=== PATIENT | female | born 1940 | race Caucasian/White ===

== ENCOUNTER 2021-10-01 01:57 | Inpatient (IN) | payer MEDICARE, MEDICAID ==
[~2021-10-01] VITALS: Ht 162.6 cm; Wt 65.3 kg
[2021-10-01 04:05] LABS: CHLORIDE 109 mEq/L (98-107)
[2021-10-01 04:12] LABS: BASOPHILS % 0.3 % (0.0-2.0); EOSINOPHILS % 0.8 % (0.0-5.0); HEMATOCRIT. 41.8 % (36.0-48.0); HEMOGLOBIN. 13.7 g/dL (12.0-16.0); LYMPHOCYTES % 18.2 % (20.0-50.0); MEAN CORPUSCULAR VOLUME 94.6 fL (81.0-99.0); MEAN PLATELET VOLUME 7.8 fl (7.4-10.4); MONOCYTES % 5.9 % (2.0-8.0); NEUTROPHILS % 74.8 % (40.0-76.0); PLATELET 272 x1000/uL (130-400); RED BLOOD CELL COUNT 4.42 mill/uL (4.2-5.4); RED CELL DISTRIBUTION WIDTH 13.8 % (11.6-14.6)
[2021-10-01] MEDS ORDERED: HYDROCODONE/ACETAMINOPHEN 5/325MG TABLET PO ONE (05:00)
[2021-10-01 09:30] VITALS: BP 122/70
[2021-10-01 10:00] VITALS: BP 122/65
[2021-10-01] MEDS ORDERED: ONDANSETRON HCL 4MG/2ML INJ IV PRN (11:15)
[2021-10-01] MEDS ORDERED: DOCUSATE SODIUM 100MG CAPSULE PO PRN (11:15)
[2021-10-01] MEDS ORDERED: HYDROCODONE/ACETAMINOPHEN 5/325MG TABLET PO PRN (11:15)
[2021-10-01] MEDS ORDERED: IPRATROPIUM/ALBUTEROL 0.5-3(2.5)MG/3ML NEB HHN PRN (11:15)
[2021-10-01] MEDS ORDERED: CLONIDINE 0.1MG TABLET PO PRN (11:15)
[2021-10-01] MEDS ORDERED: ACETAMINOPHEN 325MG TABLET PO PRN ×2 (11:15)
[2021-10-01] MEDS ORDERED: LORAZEPAM 0.5MG TABLET PO PRN (11:15)
[2021-10-01] MEDS ORDERED: NALOXONE HCL 0.4MG/ML VIAL IV PRN (11:30)
[2021-10-01 12:00] VITALS: BP 120/67
[2021-10-01 16:00] VITALS: BP 144/87
[2021-10-01 20:00] VITALS: BP 138/67
[2021-10-02] VITALS: BP 150/65
[2021-10-02 04:00] VITALS: BP 148/70
[2021-10-02 07:58] LABS: BASOPHILS % 0.6 % (0.0-2.0); EOSINOPHILS % 1.4 % (0.0-5.0); HEMOGLOBIN. 14.1 g/dL (12.0-16.0); LYMPHOCYTES % 19.5 % (20.0-50.0); MEAN CORPUSCULAR HEMOGLOBIN 30.9 pg (28.0-32.0); MEAN CORPUSCULAR VOLUME 94.3 fL (81.0-99.0); MEAN PLATELET VOLUME 8.3 fl (7.4-10.4); MONOCYTES % 5.9 % (2.0-8.0); NEUTROPHILS % 72.6 % (40.0-76.0); PLATELET 262 x1000/uL (130-400); RED BLOOD CELL COUNT 4.56 mill/uL (4.2-5.4); RED CELL DISTRIBUTION WIDTH 13.9 % (11.6-14.6)
[2021-10-02 08:00] VITALS: BP 147/78
[2021-10-02 08:04] LABS: CHLORIDE 109 mEq/L (98-107)
[2021-10-02 11:56] VITALS: BP 147/70
[2021-10-02 16:00] VITALS: BP 145/68
[2021-10-02 20:00] VITALS: BP 159/71
[2021-10-03] VITALS: BP 110/65
[2021-10-03 04:00] VITALS: BP 155/89
[2021-10-03 06:58] LABS: BASOPHILS % 0.4 % (0.0-2.0); EOSINOPHILS % 0.8 % (0.0-5.0); HEMATOCRIT. 39.9 % (36.0-48.0); HEMOGLOBIN. 13.5 g/dL (12.0-16.0); LYMPHOCYTES % 18.4 % (20.0-50.0); MEAN CORPUSCULAR HEMOGLOBIN 31.5 pg (28.0-32.0); MEAN CORPUSCULAR VOLUME 92.8 fL (81.0-99.0); MEAN PLATELET VOLUME 8.4 fl (7.4-10.4); MONOCYTES % 5.5 % (2.0-8.0); NEUTROPHILS % 74.9 % (40.0-76.0); PLATELET 279 x1000/uL (130-400); RED BLOOD CELL COUNT 4.29 mill/uL (4.2-5.4); RED CELL DISTRIBUTION WIDTH 13.5 % (11.6-14.6)
[2021-10-03 07:15] LABS: CHLORIDE 110 mEq/L (98-107)
[2021-10-03 08:00] VITALS: BP 149/57
[2021-10-03 12:00] VITALS: BP 146/63
[2021-10-03] MEDS ORDERED: LIDO700A30 TP (12:21)
[2021-10-03 16:00] VITALS: BP 125/85
[2021-10-03 20:00] VITALS: BP 154/69
[2021-10-04] VITALS: BP 144/71
[2021-10-04 04:00] VITALS: BP 146/61
[2021-10-04 08:00] VITALS: BP 142/70
[2021-10-04 13:50] VITALS: BP 142/70
== END 2021-10-04 16:49 | disposition home health service (06) | DRG 562 ==
LOC: ER 01:57 → 8WST 04:52 → EDBD 04:52 → ENRESERV 07:19
PROVIDERS: ADMIT Internal Medicine; ATTEND Internal Medicine
DX: S43.014A Anterior dislocation of right humerus, initial encounter (principal); L89.893 Pressure ulcer of other site, stage 3; E44.1 Mild protein-calorie malnutrition; S43.034A Inferior dislocation of right humerus, initial encounter; L89.100 Pressure ulcer of unspecified part of back, unstageable; L89.210 Pressure ulcer of right hip, unstageable; W18.39XA Other fall on same level, initial encounter; F03.90 Unspecified dementia, unspecified severity, without behavioral disturbance, psychotic disturbance, mood disturbance, and anxiety; M19.011 Primary osteoarthritis, right shoulder; Y93.89 Activity, other specified; Y92.89 Other specified places as the place of occurrence of the external cause; Y99.8 Other external cause status; Z68.24 Body mass index [BMI] 24.0-24.9, adult
CPT/HCPCS: 36415; 71045; 73030; 80048; 80053; 82040; 83880; 84134; 84484; 85025; 92610; 93005; 99285; A4565; A6261